=== PATIENT | male | born 1995 | race Two or more races ===

== ENCOUNTER 2018-10-20 13:35 | Emergency (ER) | payer MEDICAID, OTHER, SELFPAY ==
[~2018-10-20] VITALS: Ht 177.8 cm; Wt 77.0 kg
[2018-10-20] MEDS ORDERED: SODIUM CHLORIDE FLUSH 10ML SYR IVF ONE (14:30)
[2018-10-20] MEDS ORDERED: ONDANSETRON 2MG/ML, 2ML IVPush ONE (14:30)
[2018-10-20] MEDS ORDERED: FAMOTIDINE 20 MG/2 ML IVP ONE (14:30)
[2018-10-20] MEDS ORDERED: SODIUM CHLORIDE 0.9% 1,000ML IVBOLUS ONE (14:30)
[2018-10-20 14:53] LABS: BASOPHILS # (AUTO) 0.01 x10^3/uL (0-0.1); BASOPHILS % (AUTO) 0 % (0-1); EOSINOPHILS # (AUTO) 0.01 x10^3/uL (0-0.4); EOSINOPHILS % (AUTO) 0 % (1-7); LYMPHOCYTES # (AUTO) 0.96 x10^3/uL (1-3.4); LYMPHOCYTES % (AUTO) 6 % (22-44); MD NO; MEAN CORPUSCULAR HEMOGLOBIN 25.9 pg (27.5-34.5); MEAN CORPUSCULAR HGB CONC 31.9 g/dL (33.2-36.2); MEAN CORPUSCULAR VOLUME 81.3 fL (81-97); MEAN PLATELET VOLUME 9.1 fL (7.4-10.4); MONOCYTES # (AUTO) 0.54 x10^3/uL (0.2-0.8); MONOCYTES % (AUTO) 4 % (2-9); NEUTROPHILS # (AUTO) 13.44 x10^3/uL (1.8-6.8); NEUTROPHILS % (AUTO) 90 % (42-75); PLATELET COUNT 249 x10^3/uL (130-400); RED BLOOD COUNT 5.77 x10^6/uL (4.38-5.82); RED CELL DISTRIBUTION WIDTH 14.6 % (9.4-14.8)
--- NOTE | 2018-10-20 14:58 | NUR ---
TO ROOM AT THIS TIME
[2018-10-20 15:00] LABS: ALANINE AMINOTRANSFERASE 50 U/L (12-78); ALBUMIN 3.7 g/dL (3.4-5.0); ANION GAP 6 mmol/L (5-15); CALCIUM 8.4 mg/dL (8.5-10.1); CHLORIDE 108 mmol/L (98-107); CREATININE 1.04 mg/dL (0.7-1.3)
[2018-10-20 15:03] LABS: ALKALINE PHOSPHATASE 46 U/L (45-117); BILIRUBIN,TOTAL 0.5 mg/dL (0.2-1.0); TOTAL PROTEIN 6.2 g/dL (6.4-8.2)
[2018-10-20] MEDS ORDERED: ONDANSETRON 2MG/ML, 2ML ONE (15:16)
[2018-10-20] MEDS ORDERED: FAMOTIDINE 20 MG/2 ML ONE (15:16)
--- NOTE | 2018-10-20 15:44 | NUR ---
pt to ed for n/v and abd pain since last sunday. connected to monitors. vss. md assessment complete. labs drawn and resulted. iv established. pt medicated per oct. awaiting results at this time. pt resting with at bedside.
--- NOTE | 2018-10-20 16:29 | NUR ---
water provided for po challenge. no needs at this time. vss.
[2018-10-20 17:09] VITALS: BP 109/59
--- NOTE | 2018-10-20 17:09 | NUR ---
pt passed po challenge w/o n/v. call light wtihin reach. blanket provided. vss.
--- NOTE | 2018-10-20 17:56 | NUR ---
TASK RN: Patient/Caregiver given discharge instructions and they have confirmed that they understand the instructions. Patient ambulatory with steady gait.
== END 2018-10-20 17:57 | disposition home or self-care (01) ==
LOC: ED 15:38
DX: K22.6 Gastro-esophageal laceration-hemorrhage syndrome (principal); R06.02 Shortness of breath
CPT/HCPCS: 36415; 80053; 83690; 85025; 96361; 96374; 96375; 99283; J2405; J3490; J7030

== ENCOUNTER 2018-10-21 21:09 | Emergency (ER) | payer SELFPAY ==
[~2018-10-21] VITALS: Ht 177.8 cm; Wt 77.5 kg
[2018-10-21] MEDS ORDERED: MORPHINE SULFATE 4 MG/ML, 1ML IVPush PRN (21:30)
[2018-10-21] MEDS ORDERED: ONDANSETRON 2MG/ML, 2ML IVPush ONE (21:30)
[2018-10-21] MEDS ORDERED: PROMETHAZINE 25 MG/ML, 1ML IM ONE (21:30)
--- NOTE | 2018-10-21 21:32 | NUR ---
PT. TO ED WITH C/O ABD PAIN X 3 DAYS ALONG WITH SEVERE N/V. PT. DENIES DIARRHEA. WAS SEEN FOR SAME YESTERDAY. CHRONIC MARIJUANA USE. IV STARTED, LABS DRAWN. DR. MORALES WAS IN FOR EAVL OF PT. AT .
[2018-10-21] MEDS ORDERED: ONDANSETRON 2MG/ML, 2ML ONE ×2 (21:33→21:41)
[2018-10-21] MEDS ORDERED: PROMETHAZINE 25 MG/ML, 1ML ONE (21:34)
[2018-10-21] MEDS ORDERED: MORPHINE SULFATE 4 MG/ML, 1ML ONE (21:34)
[2018-10-21 21:39] LABS: BASOPHILS # (AUTO) 0.07 x10^3/uL (0-0.1); BASOPHILS % (AUTO) 1 % (0-1); EOSINOPHILS # (AUTO) 0.12 x10^3/uL (0-0.4); EOSINOPHILS % (AUTO) 1 % (1-7); LYMPHOCYTES # (AUTO) 2.64 x10^3/uL (1-3.4); LYMPHOCYTES % (AUTO) 17 % (22-44); MD NO; MEAN CORPUSCULAR HEMOGLOBIN 26.7 pg (27.5-34.5); MEAN CORPUSCULAR HGB CONC 32.6 g/dL (33.2-36.2); MEAN CORPUSCULAR VOLUME 82.1 fL (81-97); MEAN PLATELET VOLUME 8.6 fL (7.4-10.4); MONOCYTES # (AUTO) 1.26 x10^3/uL (0.2-0.8); MONOCYTES % (AUTO) 8 % (2-9); NEUTROPHILS # (AUTO) 11.54 x10^3/uL (1.8-6.8); NEUTROPHILS % (AUTO) 74 % (42-75); PLATELET COUNT 295 x10^3/uL (130-400); RED BLOOD COUNT 5.84 x10^6/uL (4.38-5.82); RED CELL DISTRIBUTION WIDTH 14.9 % (9.4-14.8)
--- NOTE | 2018-10-21 21:46 | NUR ---
CONTINUOUS PULSE OX AND B/P MONITORS IN PLACE. PT. HAS BEEN MEDICATED PER MAR. REMAINS AT BS. CALL LIGHT IN REACH. ALL SAFETY MEASURES OBSERVED. URINAL AT BS FOR UA.
[2018-10-21 21:49] LABS: ALANINE AMINOTRANSFERASE 47 U/L (12-78); ANION GAP 7 mmol/L (5-15); CALCIUM 8.6 mg/dL (8.5-10.1); CHLORIDE 107 mmol/L (98-107); CREATININE 1.28 mg/dL (0.7-1.3)
[2018-10-21 21:51] LABS: ALKALINE PHOSPHATASE 60 U/L (45-117); BILIRUBIN,TOTAL 0.7 mg/dL (0.2-1.0); TOTAL PROTEIN 6.6 g/dL (6.4-8.2)
--- NOTE | 2018-10-21 22:21 | NUR ---
PT. TO IMAGING [facility]IA [facility].
[2018-10-21] MEDS ORDERED: OMNIPAQUE 350 MG/ML, 100ML BOTTLE ONE (22:34)
--- NOTE | 2018-10-21 22:40 | NUR ---
REQUESTED UA FROM PT. AT THIS TIME; PT. ATTEMPTING TO VOID NOW.
--- NOTE | 2018-10-21 22:49 | NUR ---
URINE SENT TO LAB; DR. MORALES UPATED THAT PT. CONTINUES TO REPORT NAUSEA; NO VOMITING SINCE IN ED HOWEVER. NO NEW ORDERS AT THIS TIME. PT. WAS PLACED ON 2L O2 VIA NC AFTER MORPHINE FOR DESAT TO 86% WITH IMMEDIATE INCREASE BACK UP TO 96%.
[2018-10-21 23:03] LABS: MICROSCOPIC NOT IND
[2018-10-21 23:10] LABS: CULTURE INDICATED? NO
--- NOTE | 2018-10-21 23:19 | NUR ---
CHART UP FOR RECHECK BY JUNIOR.
[2018-10-21 23:39] VITALS: BP 91/49
--- NOTE | 2018-10-21 23:40 | NUR ---
PT. RESTING ON GURNEY WITH NADN. VS UPDATED. PT. AWATING RE-EVAL BY PROVIDER. CALL LIGHT REMAINS IN REACH. ALL SAFETY MEASUERS OBSERVED.
--- NOTE | 2018-10-21 23:48 | NUR ---
AT TO DISCUSS PLAN FOR D/C.
== END 2018-10-22 00:03 | disposition home or self-care (01) ==
LOC: ED 22:00
DX: R11.2 Nausea with vomiting, unspecified (principal); E86.0 Dehydration; F11.20 Opioid dependence, uncomplicated
CPT/HCPCS: 36415; 74177; 80053; 81003; 83690; 85025; 96372; 96374; 96375; 99284; J2405; J2550; Q9967

== ENCOUNTER 2018-11-07 21:40 | Emergency (ER) | payer SELFPAY ==
[~2018-11-07] VITALS: Ht 177.8 cm; Wt 80.0 kg
--- NOTE | 2018-11-07 22:11 | NUR ---
Pt reports n/v/abd pain today, worse at 7pm, states pt ate shrimp for breakfast and [employer] for lunch today. Pt here recently for same symptoms, given prescription for phenergan that he states he did not fill.
[2018-11-07] MEDS ORDERED: KETOROLAC 30 MG/1 ML ONE (22:25)
[2018-11-07] MEDS ORDERED: ONDANSETRON 2MG/ML, 2ML ONE (22:25)
[2018-11-07] MEDS ORDERED: ONDANSETRON 2MG/ML, 2ML IVPush ONE (22:30)
[2018-11-07] MEDS ORDERED: KETOROLAC 30 MG/1 ML IVPush ONE (22:30)
[2018-11-07 22:35] LABS: BASOPHILS # (AUTO) 0.06 x10^3/uL (0-0.1); BASOPHILS % (AUTO) 0 % (0-1); EOSINOPHILS # (AUTO) 0.08 x10^3/uL (0-0.4); EOSINOPHILS % (AUTO) 1 % (1-7); LYMPHOCYTES # (AUTO) 2.84 x10^3/uL (1-3.4); LYMPHOCYTES % (AUTO) 16 % (22-44); MD NO; MEAN CORPUSCULAR HEMOGLOBIN 26.8 pg (27.5-34.5); MEAN CORPUSCULAR HGB CONC 32.9 g/dL (33.2-36.2); MEAN CORPUSCULAR VOLUME 81.6 fL (81-97); MONOCYTES # (AUTO) 1.37 x10^3/uL (0.2-0.8); MONOCYTES % (AUTO) 8 % (2-9); NEUTROPHILS # (AUTO) 13.45 x10^3/uL (1.8-6.8); NEUTROPHILS % (AUTO) 76 % (42-75); PLATELET COUNT 271 x10^3/uL (130-400); RED BLOOD COUNT 6.03 x10^6/uL (4.38-5.82); RED CELL DISTRIBUTION WIDTH 15.1 % (9.4-14.8)
[2018-11-07 22:38] LABS: ALANINE AMINOTRANSFERASE 51 U/L (12-78); ALBUMIN 4.4 g/dL (3.4-5.0); ANION GAP 11 mmol/L (5-15); CALCIUM 9.7 mg/dL (8.5-10.1); CHLORIDE 113 mmol/L (98-107); CREATININE 1.21 mg/dL (0.7-1.3)
[2018-11-07 22:40] LABS: ALKALINE PHOSPHATASE 56 U/L (45-117); BILIRUBIN,TOTAL 0.8 mg/dL (0.2-1.0); TOTAL PROTEIN 7.1 g/dL (6.4-8.2)
[2018-11-07 22:52] LABS: MICROSCOPIC INDICATED
[2018-11-07 22:54] LABS: CULTURE INDICATED? YES
--- NOTE | 2018-11-07 23:27 | NUR ---
Pt lying face down on gurney, reports continued nausea, no active vomiting noted, chart up for recheck
[2018-11-07] MEDS ORDERED: PROMETHAZINE 25 MG/ML, 1ML ONE (23:30)
[2018-11-07] MEDS ORDERED: PROMETHAZINE 25 MG/ML, 1ML IM ONE (23:30)
--- NOTE | 2018-11-07 23:35 | NUR ---
Pt medicated per EMAR
[2018-11-07 23:45] VITALS: BP 103/43
--- NOTE | 2018-11-07 23:51 | NUR ---
Pt verbalized understanding of DC instructions and importance of GI follow up and returning to ED for any worsening/concerning s/s.
== END 2018-11-07 23:58 | disposition home or self-care (01) ==
LOC: ED 23:43
DX: R11.2 Nausea with vomiting, unspecified (principal); R10.84 Generalized abdominal pain
CPT/HCPCS: 36415; 80053; 81001; 83690; 85025; 86677; 87086; 96372; 96374; 96375; 99283; J1885; J2405; J2550

== ENCOUNTER 2018-12-07 14:57 | Emergency (ER) | payer SELFPAY ==
[~2018-12-07] VITALS: Ht 177.8 cm; Wt 77.0 kg
[2018-12-07 15:08] VITALS: BP 129/55
--- NOTE | 2018-12-07 15:24 | NUR ---
BOAT DISPATCHER: RECEIVED INFORMATION THAT PT WISHES TO LEAVE. PT NOT IN LOBBY AT THIS TIME.
== END 2018-12-07 15:27 | disposition left against medical advice (07) ==
LOC: ED 15:20
DX: R11.2 Nausea with vomiting, unspecified (principal); Z53.21 Procedure and treatment not carried out due to patient leaving prior to being seen by health care provider

== ENCOUNTER 2019-01-30 01:09 | Emergency (ER) | payer SELFPAY ==
[~2019-01-30] VITALS: Ht 175.3 cm; Wt 70.9 kg
[2019-01-30 01:22] VITALS: BP 101/67
--- NOTE | 2019-01-30 01:53 | NUR ---
NAX1
--- NOTE | 2019-01-30 02:17 | NUR ---
NAX2
== END 2019-01-30 02:38 | disposition left against medical advice (07) ==
LOC: ED 02:32
DX: F41.9 Anxiety disorder, unspecified (principal); R11.10 Vomiting, unspecified; Z53.21 Procedure and treatment not carried out due to patient leaving prior to being seen by health care provider

== ENCOUNTER 2019-02-21 15:21 | Emergency (ER) | payer SELFPAY ==
[~2019-02-21] VITALS: Ht 177.8 cm; Wt 67.2 kg
--- NOTE | 2019-02-21 15:44 | NUR ---
PT REPORTS N/V THAT STARTED TODAY WITH ABD PAIN IN ALL QUADRANTS. DENIES DIARRHEA OR ANY SIG MEDICAL HX
[2019-02-21] MEDS ORDERED: PROMETHAZINE 25 MG/ML, 1ML ONE (16:09)
[2019-02-21] MEDS ORDERED: ZIPRASIDONE 20 MG INJ IM ONE ×2 (16:09→17:00)
--- NOTE | 2019-02-21 16:20 | NUR ---
pt medicated per emar. pt wiggling around in bed, moaning, unable to stay still. will reassess.
[2019-02-21 16:23] LABS: MEAN CORPUSCULAR HEMOGLOBIN 27.1 pg (27.5-34.5); MEAN CORPUSCULAR HGB CONC 31.9 g/dL (33.2-36.2); MEAN CORPUSCULAR VOLUME 84.9 fL (81-97); MEAN PLATELET VOLUME 9.1 fL (7.4-10.4); PLATELET COUNT 288 x10^3/uL (130-400); RED BLOOD COUNT 5.84 x10^6/uL (4.38-5.82); RED CELL DISTRIBUTION WIDTH 15.5 % (9.4-14.8)
--- NOTE | 2019-02-21 16:23 | NUR ---
pt leaving room stating he needs to pace for the pain to be better and stating he does not want to be alone. pt asked to stay in his room, and pace in his room as needed.
[2019-02-21 16:24] LABS: ALANINE AMINOTRANSFERASE 24 U/L (12-78); ALBUMIN 4.6 g/dL (3.4-5.0); ANION GAP 7 mmol/L (5-15); CALCIUM 9.5 mg/dL (8.5-10.1); CHLORIDE 107 mmol/L (98-107); CREATININE 1.35 mg/dL (0.7-1.3)
[2019-02-21 16:27] LABS: ALKALINE PHOSPHATASE 55 U/L (45-117); BILIRUBIN,TOTAL 0.8 mg/dL (0.2-1.0); TOTAL PROTEIN 7.4 g/dL (6.4-8.2)
[2019-02-21 16:28] LABS: MD YES
[2019-02-21] MEDS ORDERED: PROMETHAZINE 25 MG/ML, 1ML IM ONE (17:00)
[2019-02-21 17:05] VITALS: BP 123/75
--- NOTE | 2019-02-21 17:07 | NUR ---
PT SLEEPING ON [employer]. REPORT GIVEN TO DIANELYS AMAYA
[2019-02-21] MEDS ORDERED: OMNIPAQUE 350 MG/ML, 100ML BOTTLE ONE (17:40)
--- NOTE | 2019-02-21 17:43 | NUR ---
[place] [id number] [phone]
[2019-02-21 18:17] LABS: BANDS%(MANUAL) 5 % (0-7); LYMPHS% (MANUAL) 5 % (22-44); MONOS% (MANUAL) 5 % (2-9); SEGS% (MANUAL) 85 % (42-75)
[2019-02-21 18:18] LABS: <PLATELET ESTIMATE> ADEQUATE; <PLT MORPHOLOGY> NORMAL PLT MORPH; <RBC MORPHOLOGY> NORMAL
== END 2019-02-21 19:04 | disposition home or self-care (01) ==
LOC: ED 16:11
DX: G89.29 Other chronic pain (principal); R10.84 Generalized abdominal pain; D72.829 Elevated white blood cell count, unspecified; Z87.891 Personal history of nicotine dependence
CPT/HCPCS: 36415; 74021; 74177; 80053; 83690; 85025; 93005; 96372; 99284; J2550; J3486; Q9967

== ENCOUNTER 2019-03-21 17:36 | Emergency (ER) | payer SELFPAY | END 2019-03-21 18:20 | disposition left against medical advice (07) | LOC: ED 18:13 | DX: F41.9 Anxiety disorder, unspecified (principal); Z53.21 Procedure and treatment not carried out due to patient leaving prior to being seen by health care provider ==

== ENCOUNTER 2021-01-18 21:17 | Emergency (ER) | payer SELFPAY ==
[~2021-01-18] VITALS: Ht 177.8 cm; Wt 71.7 kg
[2021-01-18] MEDS ORDERED: SODIUM CHLORIDE 0.9% 1,000ML IVBOLUS ONE (21:30)
[2021-01-18] MEDS ORDERED: SODIUM CHLORIDE FLUSH 10ML SYR IVF ONE (21:30)
[2021-01-18] MEDS ORDERED: ACETAMINOPHEN 500 MG TABLET ONE (21:39)
[2021-01-18] MEDS ORDERED: ACETAMINOPHEN 500 MG TABLET PO ONE (22:00)
[2021-01-18 22:42] LABS: BASOPHILS % (AUTO) 0 % (0-1); EOSINOPHILS % (AUTO) 0 % (1-7); LYMPHOCYTES % (AUTO) 5 % (22-44); MEAN CORPUSCULAR HEMOGLOBIN 27.8 pg (27.5-34.5); MEAN CORPUSCULAR HGB CONC 33.5 g/dL (33.2-36.2); MONOCYTES % (AUTO) 10 % (2-9); NEUTROPHILS % (AUTO) 85 % (42-75); PLATELET COUNT 234 x10^3/uL (130-400); RED BLOOD COUNT 5.13 x10^6/uL (4.38-5.82); RED CELL DISTRIBUTION WIDTH 15.6 % (9.4-14.8)
[2021-01-18 22:43] LABS: MD NO
[2021-01-18 22:47] LABS: ANION GAP 6 mmol/L (5-15); CHLORIDE 105 mmol/L (98-107); CREATININE 1.05 mg/dL (0.7-1.3)
--- NOTE | 2021-01-18 23:29 | NUR ---
CT PENDING IV
--- NOTE | 2021-01-19 00:37 | NUR ---
[employer]ING [employer]: PT FROM LOBBY TO ROOM AT THIS TIME. NO ACUTE DISTRESS NOTED.
[2021-01-19] MEDS ORDERED: ONDANSETRON 2MG/ML, 2ML IVPush ONE (01:00)
--- NOTE | 2021-01-19 01:05 | NUR ---
PT C/O OF ABSCESS IN LEFT PART OF FACE SINCE LAST NIGHT. PT NOTED TO HAVE A FEVER 100.3 CURRENTLY AFTER TAKING TYLENOL. PT ATTACHED TO MONITORS. VSS. BED IN LOW POSITION. RAILS ENGAGED. CALL LIGHT WITHIN REACH. PT IN NAD. PT STATING HE IS DEPRESSED. NOTIFIED. PT HAS NO CURRENT SI OR HI WCTM
[2021-01-19] MEDS ORDERED: ONDANSETRON 2MG/ML, 2ML ONE (01:11)
[2021-01-19] MEDS ORDERED: MORPHINE SULFATE 4 MG/ML, 1ML ONE ×3 (01:12→05:12)
[2021-01-19] MEDS: MORPHINE SULFATE 4 MG/ML, 1ML IVPush PRN ×2 (01:13→01:50)
[2021-01-19 01:25] LABS: ALBUMIN 3.9 g/dL (3.4-5.0); BILIRUBIN, DIRECT 0.1 mg/dL (0.1-0.2); SALICYLATE LEVEL 1.8 mg/dL (2.8-20.0)
[2021-01-19 01:27] LABS: BILIRUBIN,INDIRECT 0.3 mg/dL (0.0-2.0); BILIRUBIN,TOTAL 0.4 mg/dL (0.2-1.0); TOTAL PROTEIN 7.1 g/dL (6.4-8.2)
[2021-01-19] MEDS ORDERED: OMNIPAQUE 350 MG/ML, 75ML BOTTLE ONE (01:34)
--- NOTE | 2021-01-19 01:53 | NUR ---
PT ESTING IN BED. TOLERATING MEDS PER EMAR. ATTACHED TO MONITORS. VSS. CALL LIGHT WITHIN REACH. BED IN LOW POSITION. WCTM
--- NOTE | 2021-01-19 03:45 | NUR ---
PT RESTING IN BED. ATTACXHED TO MONITORS. VSS. RAILS ENGAGED. GOT BACK FROM BATHROM. AMBULATED WELL WITH STEADY GAIT. BED IN LOW POSITION. CALL LIGHT WITHIN REACH. WCTM
[2021-01-19 04:09] LABS: AMPHETAMINE SCREEN, URINE Negative (Negative); BARBITURATE SCREEN, URINE Negative (Negative); BENZODIAZEPINE SCREEN, URINE Negative (Negative); CANNABINOID SCREEN, URINE Positive (Negative); COCAINE SCREEN, URINE Negative (Negative); METHADONE SCREEN, URINE Negative (Negative); OPIATE SCREEN, URINE Positive (Negative)
[2021-01-19] MEDS ORDERED: BUPIVACAINE 0.25% ONE (04:13)
[2021-01-19] MEDS ORDERED: CLINDAMYCIN 300 MG CAPSULE ONE (04:13)
[2021-01-19] MEDS ORDERED: LIDOCAINE-MPF 1%, 5ML ONE (04:14)
[2021-01-19] MEDS ORDERED: CLINDAMYCIN 300 MG CAPSULE PO ONE (04:30)
[2021-01-19] MEDS ORDERED: LIDOCAINE 1%, 10ML INFIL ONE (04:30)
[2021-01-19] MEDS ORDERED: BUPIVACAINE 0.25% INFIL ONE (04:30)
--- NOTE | 2021-01-19 04:56 | NUR ---
IN ROOM PERFORMING I&D
[2021-01-19] MEDS ORDERED: MORPHINE SULFATE 4 MG/ML, 1ML IVPush PRN (05:30)
[2021-01-19 06:07] VITALS: BP 121/65
--- NOTE | 2021-01-19 06:10 | NUR ---
Patient given discharge instructions and they have confirmed that they understand the instructions. Patient ambulatory with steady gait.
== END 2021-01-19 06:12 | disposition home or self-care (01) ==
LOC: ED 01-19 01:11
DX: K04.7 Periapical abscess without sinus (principal); F32.9 Major depressive disorder, single episode, unspecified; F17.210 Nicotine dependence, cigarettes, uncomplicated; R22.0 Localized swelling, mass and lump, head
CPT/HCPCS: 36415; 41800; 70487; 80048; 80076; 80299; 80307; 80320; 83605; 85025; 87040; 96361; 96372; 96376; 99285; 99406; J2270; J2405; J7030; Q9967; 80329; G0480